=== PATIENT | male | born 1965 ===

== ENCOUNTER 2017-05-26 08:04 | Emergency (ER) | payer BC ==
[2017-05-26 08:12] VITALS: RESP 18; TEMP 97.5
[2017-05-26] MEDS ORDERED: Oxycodone/Acetaminophen 5/325 mg Tab PO STA (08:28)
[2017-05-26] MEDS ORDERED: Oxycodone/Acetaminophen 5/325 mg Tab ONE (08:38)
--- NOTE | 2017-05-26 08:48 | RAD ---
PROCEDURE: Left Hand Radiographs. HISTORY: left hand pain COMPARISON: None. FINDINGS: BONES: No acute fracture or destructive bony lesion identified. JOINTS: Normal. No osteoarthritic changes. SOFT TISSUES: Normal. OTHER FINDINGS: None. IMPRESSION: Unremarkable left hand radiographs.
--- NOTE | 2017-05-26 08:58 | C.PDOC ---
History Of Present Illness 51 y/o male presents to ED with complaints of atraumatic left hand pain and swelling for 3 days. Patient state she woke up with pain to left hand but has not taken medication for symptoms. Patient denies chest pain, sob, numbness or any other complaints at this time. Time Seen by Provider: 05/26/17 08:19 Chief Complaint (Nursing): Finger,Hand,&Wrist History Per: Patient History/Exam Limitations: no limitations Onset/Duration Of Symptoms: Days Current Symptoms Are (Timing): Still Present Quality: "Pain" Past Medical History Reviewed: Historical Data, Nursing Documentation, Vital Signs Vital Signs: Last Vital Signs Temp 97.5 F L 05/26/17 08:09 Pulse 90 05/26/17 08:09 Resp 18 05/26/17 08:09 BP 144/93 H 05/26/17 08:09 Pulse Ox 97 05/26/17 10:50 - Medical History PMH: No Chronic Diseases Surgical History: No Surg Hx Family History: States: No Known Family Hx - Social History Hx Alcohol Use: No Hx Substance Use: No - Immunization History Hx Tetanus Toxoid Vaccination: No Hx Influenza Vaccination: No Hx Pneumococcal Vaccination: No Review Of Systems Except As Marked, All Systems Reviewed And Found Negative. Musculoskeletal: Positive for: Hand Pain Physical Exam - Physical Exam Appears: Non-toxic, No Acute Distress Skin: Warm, Dry, No Rash Head: Atraumatic, Normacephalic Oral Mucosa: Moist Neck: Normal ROM, Supple Cardiovascular: Rhythm Regular Respiratory: Normal Breath Sounds, No Rales, No Rhonchi, No Wheezing Gastrointestinal/Abdominal: Soft, No Tenderness, No Guarding, No Rebound Extremity: Tenderness (left dorsal metacarpal and phalanges 2-5), No Deformity, Swelling (left dorsal metacarpal and phalanges 2-5) Pulses: Left Radial: Normal, Right Radial: Normal Neurological/Psych: Oriented x3, Normal Motor, Normal Sensation ED Course And Treatment - Laboratory Results Result Diagrams: 05/26/17 08:59 05/26/17 08:59 O2 Sat by Pulse Oximetry: 97 (RA) Pulse Ox Interpretation: Normal Medical Decision Making Medical Decision Making: Assessment: Hand pain Progress: xray results were normal, pt discharged and advised f.u with in 1-2 days Disposition Counseled Patient/Family Regarding: Studies Performed, Diagnosis, Need For Followup, Rx Given - Disposition Referrals: Madhavi Garcia MD [Staff Provider] - Disposition: HOME/ ROUTINE Disposition Time: 10:46 Condition: STABLE Additional Instructions: follow up with orthopaedic doctor in 1 day call to make an appointment today take pain medication as needed return to hospital immediately if symptoms worsens or progress keep hand elevated Prescriptions: Acetaminophen/Hydrocodone Bi [Vicodin 300 mg-5 mg] 1 tab PO QID PRN #15 tab PRN Reason: Pain, Moderate (4-7) Naproxen [Naprosyn] 500 mg PO BID PRN #16 tab PRN Reason: Pain, Moderate (4-7) Instructions: Hand Pain (DC), Joint Pain Forms: Gen Discharge Inst Citizen Of [place], [employer] (Citizen Of [place]), Work Excuse Print Language: SAMI - Clinical Impression Clinical Impression: Arthralgia, Hand pain, left - Scribe Statement The provider has reviewed the documentation as recorded by the Destinyibmarifer Harry All medical record entries made by the Destinyibmarifer were at my direction and personally dictated by me. I have reviewed the chart and agree that the record accurately reflects my personal performance of the history, physical exam, medical decision making, and the department course for this patient. I have also personally directed, reviewed, and agree with the discharge instructions and disposition.
[2017-05-26 09:09] LABS: BASO # 0.1 K/uL (0.0-0.2); BASO % 1.1 % (0.0-2.0); EOS # 0.4 K/uL (0.0-0.7); EOS % 3.9 % (0.0-4.0); HEMOGLOBIN 14.9 g/dL (12.0-18.0); LYMPH % 31.2 % (20.0-40.0); MEAN CELL VOLUME 90.2 fL (80.0-94.0); MEAN CORPUSCULAR HEMOGLOBIN 31.4 pg (27.0-31.0); MEAN CORPUSCULAR HGB CONC 34.8 g/dL (33.0-37.0); MEAN PLATELET VOLUME 8.7 fL (7.2-11.7); MONO # 0.9 K/uL (0.0-0.8); MONO % 9.2 % (0.0-10.0); NEUT # 5.3 K/uL (1.8-7.0); NEUT % 54.6 % (50.0-75.0); RBC 4.74 Mil/uL (4.40-5.90); RED CELL DISTRIBUTION WIDTH 13.7 % (11.5-14.5); WHITE BLOOD COUNT 9.7 K/uL (4.8-10.8)
[2017-05-26 09:33] LABS: GFR AFRICAN-AMERICAN > 60; GFR NON-AFRICAN AMERICAN > 60; URIC ACID 5.1 mg/dL (3.5-8.5)
[2017-05-26 09:35] LABS: ALB/GLOB RATIO 1.1 (1.0-2.1); ALBUMIN 4.4 g/dL (3.5-5.0); ALT/SGPT 15 U/L (21-72); AST/SGOT 37 U/L (17-59); BLOOD UREA NITROGEN 13 mg/dL (9-20)
[2017-05-26 10:58] VITALS: BP 131/83; PULSE 59; O2SAT 99
== END 2017-05-26 11:06 | disposition home or self-care (01) ==
LOC: C.ER 08:04
DX: M25.542 Pain in joints of left hand (principal)
CPT/HCPCS: 73130; 80053; 82550; 84550; 85025; 85651; 96374; 99284; J1885